=== PATIENT | male | born 2000 | race Caucasian/White ===

== ENCOUNTER 2022-06-07 17:29 | Outpatient (CLI) | payer OTHER ==
--- NOTE | 2022-06-08 09:34 | XRAY Report ---
PROCEDURE: Shoulder 2 View RT INDICATIONS: CRUSHING INJURY OF RIGHT SHOULDER AND UPPER ARM TECHNIQUE: 2 views of the shoulder were acquired. COMPARISON: None. FINDINGS: Bones: No acute fractures or dislocations. No suspicious bony lesions. Visualized ribs appear inta ct. Soft tissues: No suspicious soft tissue calcifications. IMPRESSION: No acute osseous abnormality. If there is clinical concern or persistent symptoms, addit ional imaging such as repeat radiographs or advanced imaging (e.g. CT, MRI) may be helpful for furthe r evaluation. Reviewed by: Toño Velazquez MD on 06/08/2022 9:33 AM PST Approved by: Toño Velazquez MD on 06/08/2022 9:33 AM [facility] Station ID: [id number]
== END 2022-06-07 17:30 | disposition home or self-care (01) ==
LOC: DI 17:29
PROVIDERS: ATTEND Nurse Practitioner
DX: S47.1XXA Crushing injury of right shoulder and upper arm, initial encounter (principal)

== ENCOUNTER 2022-08-03 10:11 | Emergency (ER) | payer OTHER ==
[2022-08-03] MEDS ORDERED: ONDANSETRON 4 MG/2 ML VIAL IVP STA (10:46)
[2022-08-03] MEDS ORDERED: SODIUM CHLORIDE 0.9% 1,000 ML IV STA (10:46)
[2022-08-03 10:56] LABS: BASOPHILS % (AUTO) 0.8 %; EOSINOPHILS % (AUTO) 0.2 %; HCT - HEMATOCRIT 46.6 % (42.0-52.0); HGB - HEMOGLOBIN 16.3 g/dL (14.0-18.0); LYMPHOCYTES # (AUTO) 1.4 10^3/uL (1.5-3.5); LYMPHOCYTES % (AUTO) 30.1 %; MEAN CORPUSCULAR HEMOGLOBIN 31.2 pg (27.0-31.0); MEAN CORPUSCULAR VOLUME 89.1 fL (80.0-94.0); MEAN PLATELET VOLUME 12.4 fL (7.4-11.4); MONOCYTES # (AUTO) 0.3 10^3/uL (0.0-1.0); MONOCYTES % (AUTO) 6.1 %; NEUTROPHILS % (AUTO) 62.6 %; PLT - PLATELET COUNT 117 10^3/uL (130-450); RED BLOOD COUNT 5.23 10^6/uL (4.70-6.10); RED CELL DISTRIBUTION WIDTH 11.9 % (12.0-15.0); WHITE BLOOD COUNT 4.8 x10^3/uL (4.8-10.8)
[2022-08-03 11:06] VITALS: BP 144/95
--- NOTE | 2022-08-03 11:08 | XRAY Report ---
PROCEDURE: Chest 1 View X-Ray INDICATIONS: CP TECHNIQUE: One view of the chest was acquired. COMPARISON: None. FINDINGS: Surgical changes and devices: None. Lungs and pleura: No pleural effusions or pneumothorax. Lungs are clear. Mediastinum: Mediastinal contours appear normal. Heart size is normal. Bones and chest wall: No suspicious bony lesions. Overlying soft tissues appear unremarkable. IMPRESSION: No acute cardiopulmonary process. Reviewed by: Richard Sierra MD on 08/03/2022 11:07 AM PDT Approved by: Richard Sierra MD on 08/03/2022 11:07 AM PDT Station ID: [id number]
[2022-08-03 11:12] LABS: ALBUMIN 4.7 g/dL (3.2-5.5); ALBUMIN/GLOBULIN RATIO 1.5 (1.0-2.2); BILIRUBIN,TOTAL 0.9 mg/dL (0.2-1.0); CALCIUM 9.4 mg/dL (8.5-10.3); CREATININE 0.9 mg/dL (0.6-1.2); POTASSIUM 3.6 mmol/L (3.5-5.0); TOTAL PROTEIN 7.8 g/dL (6.7-8.2)
[2022-08-03 11:21] LABS: SLIDE REVIEW? Indicated; WBC MORPHOLOGY (MULTIPLE) 1+ REACTIVE LYMPHS (NORMAL)
--- NOTE | 2022-08-03 11:49 | ED Physician Documentation ---
History of Present Illness - Stated complaint Stated Complaint: NASUEA, VOMIT, CHST TIGHTNESS - Chief complaint Chief Complaint: Cardiac - History obtained from History obtained from: Patient - Additonal information Additional information: Patient is a 21-year-old male, active [employer] [place] presenting for evaluation of chest discomfort that feels like a tightness in the middle of his chest since 6:00 this morning. Also reports feeling nauseous this morning and having 1 episode of emesis. Chest pain has gotten better. He reports feeling lightheaded. He reports having sick contacts at work with others having a GI bug. He denies fever, cough, difficulty breathing, diarrhea. He has not take any medications. He denies any recent drug or alcohol use.No recent travel or immobilization. No history of hypertension, diabetes, hyperlipidemia, family history of early CAD Review of Systems Constitutional: denies: Fever Nose: denies: Congestion Cardiac: reports: Chest pain / pressure Respiratory: denies: Dyspnea, Cough GI: reports: Nausea, Vomiting. denies: Abdominal Pain Musculoskeletal: denies: Back pain Neurologic: denies: Headache PD PAST MEDICAL HISTORY - Past Medical History Past Medical History: Yes Cardiovascular: None Respiratory: None Neuro: None Endocrine/Autoimmune: None GI: GERD : None HEENT: None Psych: None Musculoskeletal: None Derm: None - Past Surgical History Past Surgical History: No - Present Medications Home Medications: Ambulatory Orders Medication Instructions Recorded Confirmed Ondansetron Odt [Zofran] 4 mg TL Q6H PRN #10 tablet 08/03/22 - Allergies Allergies/Adverse Reactions: Allergies Allergy/AdvReac Type Severity Reaction Status Date / Time No Known Drug Allergies Allergy Verified 08/03/22 10:35 - Social History Does the pt smoke?: No Smoking Status: Never smoker Does the pt drink ETOH?: Yes ETOH Use: Wine, Liquor Does the pt have substance abuse?: No - Immunizations Immunizations are current?: Yes PD ED PE NORMAL - General General: Alert and oriented X 3, No acute distress, Well developed/nourished - HEENT HEENT: Atraumatic - Neck Neck: Supple, no meningeal sign - Cardiac Cardiac: RRR, No murmur, Other (No chest wall tenderness) - Respiratory Respiratory: No respiratory distress, Clear bilaterally - Abdomen Abdomen: Soft, Non tender, Non distended - Derm Derm: Warm and dry - Extremities Extremities: No edema, No calf tenderness / cord - Neuro Neuro: Alert and oriented X 3, No motor deficit, Normal speech Results - Vitals Vitals: Vital Signs - 24 hr 08/03/22 08/03/22 10:32 11:06 Temperature 36.7 C Heart Rate 75 67 Respiratory 18 14 Rate Blood Pressure 156/96 H 144/95 H O2 Saturation 99 100 Oxygen O2 Source Room air - EKG (time done) 1030 EKG releavant findings:: EKG personally interpreted by author of this note. Relevant findings are: Rate 71, normal sinus rhythm, no STEMI, QTc 417 Rate: Rate (enter#) (71) Rhythm: NSR Intervals: No: Prolonged QT Ischemia: No: ST elevation c/w ischemia, ST depression Compare to prior EKG: Unchanged from prior EKG - Labs Labs: Laboratory Tests 08/03/22 08/03/22 08/03/22 10:50 10:50 10:50 WBC 4.8 RBC 5.23 Hgb 16.3 Hct 46.6 MCV 89.1 MCH 31.2 H MCHC 35.0 RDW 11.9 L Plt Count 117 L MPV 12.4 H Neut # (Auto) 3.0 Lymph # (Auto) 1.4 L Reeves # (Auto) 0.3 Eos # (Auto) 0.0 Baso # (Auto) 0.0 Absolute Nucleated RBC 0.00 Nucleated RBC % 0.0 Manual Slide Review Indicated WBC Morphology 1+ REACTIVE LYMPHS Sodium 137 Potassium 3.6 Chloride 102 Carbon Dioxide 28 Anion Gap 7.0 BUN 15 Creatinine 0.9 Estimated GFR (MDRD) 105 Glucose 107 H Calcium 9.4 Total Bilirubin 0.9 AST 32 ALT 30 Alkaline Phosphatase 73 Troponin I High Sens < 2.3 L Total Protein 7.8 Albumin 4.7 Globulin 3.1 Albumin/Globulin Ratio 1.5 Lipase 29 PD Medical Decision Making - ED course Complexity details: reviewed results, re-evaluated patient, d/w patient ED course: Patient presenting for evaluation of chest pain this morning along with an episode of nausea and vomiting. He has no known risk factors for ACS. His EKG demonstrates a normal sinus rhythm. His chest x-ray which I reviewed is abnormal without signs of cardiomegaly, pneumothorax, effusion or consolidation. Labs were obtained including CBC, chemistries and troponin which were all on remarkable.Based on the duration of his symptoms I do not think repeat troponin would be necessary especially given that I feel ACS is very unlikely. PERC negative.No migratory symptoms to suggest a dissection. He is feeling better after IV fluids and Zofran. His abdominal exam remained benign. He is ambulating here without difficulty. He is counseled to continue with supportive care and is advised on concerning symptoms to return for. Departure - Departure Disposition: 01 Home, Self Care Clinical Impression: Chest pain, Nausea & vomiting Condition: Stable Instructions: ED Chest Pain Atypical Unkn Cause, ED Nausea Vomiting Follow-Up: JOSÉ MANUEL Carrillo [Provider Group] Prescriptions: Ondansetron Odt [Zofran] 4 mg TL Q6H PRN #10 tablet PRN Reason: Nausea / Vomiting Comments: Your labs and testing today are reassuring including an EKG, labs including a marker that checks your heart and electrolytes, your chest x-ray. Your symptoms could be related to a viral infection. I am sending a prescription for antinausea medications [place] [facility] [place] I would recommend having close follow-up with your primary care if you continue to have episodes of chest pain. If you develop any new or worsening symptoms please consider return to the emergency department. Forms: Activity restrictions Discharge Date/Time: 08/03/22 12:10
== END 2022-08-03 12:10 | disposition home or self-care (01) ==
LOC: ED 10:11
DX: R07.89 Other chest pain (principal); R11.2 Nausea with vomiting, unspecified
CPT/HCPCS: 36415; 80053; 83690; 84484; 85025; 93005; 96374; 99284